=== PATIENT | female | born 1945 | race Hispanic/Latino ===

== ENCOUNTER 2016-04-25 14:30 | Emergency (ER) | payer MEDICARE ==
[2016-04-25] MEDS ORDERED: Lidocaine 1% 20 ML MDV ONE (15:05)
[2016-04-25] MEDS ORDERED: Sulfameth/Trimethoprim DS 800-160mg TAB ONE (15:22)
--- NOTE | 2016-04-25 15:45 | ERRECORD ---
[facility] EMERGENCY RECORD HPI ABSCESS (14:52 WMEI) CHIEF COMPLAINT: Patient presents for evaluation of swelling, Patient presents for evaluation of pain, Denies drainage from wound. HISTORIAN: History provided by patient. LOCATION: Symptoms are localized, most severe to forehead not aware of original injury noticed swelling for 4 days. QUALITY: Pain is dull in nature. TIME COURSE: Gradual onset of symptoms, 4, days priror to arrival. ASSOCIATED WITH: No associated chills, No associated fever. EXACERBATED BY: Patient's condition exacerbated by nothing. RELIEVED BY: Patient's condition relieved by nothing. ROS (14:53 WMEI) CONSTITUTIONAL: Historian denies chills, denies fever. EYES: Historian denies eye pain, denies eye discharge. ENT: Historian denies otalgia, denies sore throat. CARDIOVASCULAR: Historian denies chest pain, no radiation. RESPIRATORY: Historian denies cough, denies shortness of breath. GI: Historian denies abdominal pain, denies nausea, denies vomiting. GENITOURINARY FEMALE: Historian denies dysuria, denies frequency. MUSCULOSKELETAL: Historian denies injury, denies joint stiffness. SKIN: Historian reports cellulitis, reports skin changes. NEUROLOGIC: Historian denies confusion, denies lethargy, denies mental status changes. PSYCHIATRIC: Historian denies alcohol abuse, denies drug abuse. PAST MEDICAL HISTORY (14:39 LGIB) MEDICAL HISTORY: Flu vaccine up to date, Tetanus immunization up to date, Pneumococcal vaccine up to date, Past medical history includes history of diabetes, Type II, Past medical history includes history of hypertension, which has been treated, Past medical history includes musculoskeletal disorder, osteoporosis. vERIFIED 04/25/16. FEMALE SURGICAL HISTORY: kyphoplasty, gastric bypass, Surgical history of cholecystectomy, Surgical history of hysterectomy. VERIFIED 04/25/16. PSYCHIATRIC HISTORY: Psychiatric history includes, anxiety VERIFIED 04/25/16. SOCIAL HISTORY: Patient denies alcohol use, Patient denies drug use, Patient has no smoking history. VERIFIED 04/25/16. KNOWN ALLERGIES Ceclor: Reaction: Hives CeleBREX: - SWELLING codeine sulfate: Reaction: Rash NIFEdipine UltRAM: Reaction: Nausea &a-1R&a+25V*p+0X*[id number]*c202B*c15G*c2P*p-0X&a-25V&a+1R Name: Freddy Hazel : 1945 F70 MedRec: [id number] AcctNum: [id number] Prepared: Sat Apr 25, 2016 19:52 by Interface Page 1 of 3 pMD [facility] EMERGENCY RECORD CURRENT MEDICATIONS (14:41 LGIB) Invokana: TABLET : Strength - 100 mg : ORAL Patient Dose: 1 tab(s) Oral once a day. metFORMIN: TABLET : Strength - 1,000 mg : ORAL Patient Dose: 1 tab(s) Oral once a day. Coreg: TABLET : Strength - 12.5 mg : ORAL Patient Dose: 12.5 mg Oral 2 times a day. levothyroxine: TABLET : Strength - 100 mcg : ORAL Patient Dose: 175 mcg Oral once a day. Diovan: TABLET : Strength - 80 mg : ORAL Patient Dose: 320 mg Oral once a day. iron: TABLET : Strength - 325 mg (65 mg iron) : ORAL Patient Dose: Unknown. Requip: TABLET : Strength - 0.5 mg : ORAL Patient Dose: 0.1 mg Oral once a day. Hinckley: TABLET : Strength - 5 mg-325 mg : ORAL Patient Dose: 1 tab(s) Oral every 6 hours PRN. VITAL SIGNS VITAL SIGNS: Pulse: 98, Resp: 18 (Non-Labored), Temp: 98.5 (Oral), Pain: 6, O2 sat: 98 on Room Air, Time: 04/25/2016 14:38. (14:38 LGIB) BP: 197/104, Time: 04/25/2016 14:39. (14:39 LGIB) BP: 174/117, Pulse: 93, Resp: 18, Temp: 98.5 (Oral), Pain: 4, O2 sat: 97 on Room Air, Time: 04/25/2016 15:25. (15:25 AHOO) PHYSICAL EXAM (14:54 WMEI) CONSTITUTIONAL: Vital signs reviewed, Patient appears non toxic, Patient alert and oriented to person, place and time. HEAD: normocephalic, 4x4 cm area of erythema with small scab in the middle minimal fluctuance. EYES: Conjunctiva normal, Sclera normal. ENT: Ear exam normal, Nose exam normal, Pharynx exam normal. NECK: Neck exam included findings of normal range of motion, Trachea midline, Thyroid normal. RESPIRATORY CHEST: Breath sounds clear, Chest exam included findings of chest movement symmetrical. CARDIOVASCULAR: Cardiovascular exam included findings of heart rate regular rate and rhythm, Heart sounds normal. ABDOMEN FEMALE: Abdominal exam included findings of abdomen nontender, Liver normal, Spleen normal. &a-1R&a+25V*p+0X*x6694L*c202B*c15G*c2P*p-0X&a-25V&a+1R Name: Freddy Hazel : 1945 F70 MedRec: [id number] AcctNum: [id number] Prepared: Sat Apr 25, 2016 19:52 by Interface Page 2 of 3 pMD [facility] EMERGENCY RECORD UPPER EXTREMITY: Upper extremity exam included findings of inspection normal, Range of motion normal, Motor strength normal. LOWER EXTREMITY: Lower extremity exam included findings of inspection normal, Range of motion normal, Motor strength normal. NEURO: Angelika coma scale 15, Neuro exam findings include patient oriented to, Speech, Gait abnormal. SKIN: Skin exam included findings of skin warm, dry, and normal in color, 4x4 cm area of erythema with small scab in the middle minimal fluctuance. LYMPHATIC: Lymphatic exam normal. PSYCHIATRIC: Psychiatric exam included findings of patient oriented to person place and time, Normal affect, Judgment normal, Insight normal. MEDICATION ADMINISTRATION SUMMARY Drug Name: Bactrim DS, Dose Ordered: 1 tab(s), Route: Oral, Status: Given, Time: 15:25 04/25/2016, Drug Name: lidocaine (PF) injection, Dose Ordered: 10 mg, Route: Subcutaneous, Status: Given, Time: 15:17 04/25/2016, Detailed record available in Medication Service section. PROBLEM LIST No recorded problems DIAGNOSIS (15:22 WMEI) FINAL: PRIMARY: abscess. PRESCRIPTION (15:18 WMEI) Bactrim DS: TABLET : 800 mg-160 mg : ORAL : Quantity: 1 Unit: tab(s) Route: ORAL Schedule: 2 times a day (before meals) Dispense: 14 Unit: tab(s) May substitute. Refills: No Refills POTENTIAL SEVERE INTERACTION: Diovan Override Rationale: Patient tolerated similar in past, Reviewed with patient. NOTES: No refills. DISPOSITION PATIENT: Disposition Type: Discharge, Disposition: *Discharge Home. (15:22 WMEI) Patient left the department. (15:37 AHMEREDITH) Coy: AHOO=LENI Oro, June LGIB=GUERDA Israel Lauren WMEI=DO Gomez William &a-1R&a+25V*p+0X*[id number]*c202B*c15G*c2P*p-0X&a-25V&a+1R Name: Freddy Hazel : 1945 F70 MedRec: [id number] AcctNum: [id number] Prepared: Brown Apr 25, 2016 19:52 by Interface Page 3 of 3 pMD MTDD
--- NOTE | 2016-04-25 15:50 | PICIS ---
[facility] EMERGENCY RECORD TRIAGE ([facility] Apr 25, 2016 14:35 LGIB) TRIAGE NOTES: LAST WEDNESDAY NOTICED REDNESS AND THEN IT STARTED GETTING BIGGER. ([facility] Apr 25, 2016 14:35 LGIB) PATIENT: NAME: Freddy Hazel, AGE: 70, GENDER: female, : [facility] 1945, TIME OF GREET: Sat Apr 25, 2016 14:31, PREFERRED LANGUAGE: Tunisian, ETHNICITY: or , ECODE BILLING MAP: [facility], SSN: [id number], Zip Code: [address], KG WEIGHT: 66.68, PHONE: , , , PERSON ID: [id number], PAYMENT: [employer], PCP: MD Joy Kyle. ([facility] Apr 25, 2016 14:35 LGIB) COMPLAINT: ABSCESS. ([facility] Apr 25, 2016 14:35 LGIB) ADMISSION: URGENCY: 4 Non Urgent, ADMISSION SOURCE: Home, TRANSPORT: CAR, BED: TRIAGE. ([facility] Apr 25, 2016 14:35 LGIB) PROVIDERS: TRIAGE NURSE: Mariama Israel RN. ([facility] Apr 25, 2016 14:35 LGIB) PREVIOUS VISIT ALLERGIES: Ceclor, CeleBREX, codeine sulfate, UltRAM. ([facility] Apr 25, 2016 14:35 LGIB) Ceclor, CeleBREX, codeine sulfate, UltRAM. (14:39 LGIB) KNOWN ALLERGIES Ceclor: Reaction: Hives CeleBREX: - SWELLING codeine sulfate: Reaction: Rash NIFEdipine UltRAM: Reaction: Nausea CURRENT MEDICATIONS (14:41 LGIB) Invokana: TABLET : Strength - 100 mg : ORAL Patient Dose: 1 tab(s) Oral once a day. metFORMIN: TABLET : Strength - 1,000 mg : ORAL Patient Dose: 1 tab(s) Oral once a day. Coreg: TABLET : Strength - 12.5 mg : ORAL Patient Dose: 12.5 mg Oral 2 times a day. levothyroxine: TABLET : Strength - 100 mcg : ORAL Patient Dose: 175 mcg Oral once a day. Diovan: TABLET : Strength - 80 mg : ORAL Patient Dose: 320 mg Oral once a day. iron: TABLET : Strength - 325 mg (65 mg iron) : ORAL Patient Dose: Unknown. Requip: TABLET : Strength - 0.5 mg : ORAL Patient Dose: 0.1 mg Oral once a day. Catarina: &a-1R&a+25V*p+0X*n8758B*c202B*c15G*c2P*p-0X&a-25V&a+1R Name: Freddy Hazel : 1945 F70 MedRec: [id number] AcctNum: [id number] Prepared: Sat Apr 25, 2016 19:52 by Interface Page 1 of 6 pMD [facility] EMERGENCY RECORD TABLET : Strength - 5 mg-325 mg : ORAL Patient Dose: 1 tab(s) Oral every 6 hours PRN. VITAL SIGNS VITAL SIGNS: Pulse: 98, Resp: 18 (Non-Labored), Temp: 98.5 (Oral), Pain: 6, O2 sat: 98 on Room Air, Time: 04/25/2016 14:38. (14:38 LGIB) BP: 197/104, Time: 04/25/2016 14:39. (14:39 LGIB) BP: 174/117, Pulse: 93, Resp: 18, Temp: 98.5 (Oral), Pain: 4, O2 sat: 97 on Room Air, Time: 04/25/2016 15:25. (15:25 AHOO) NURSING ASSESSMENT: SKIN (14:45 LGIB) CONSTITUTIONAL: Complex assessment performed, Patient arrives ambulatory, Gait steady, History obtained from patient, Patient appears comfortable, Patient cooperative, Patient alert, Oriented to person, place and time, Skin warm, Skin dry, Skin normal in color, Mucous membranes pink, Mucous membranes moist, Patient is well-groomed, Patient complains of SKIN REDNESS, WARMTH. PAIN: tender pain, Onset of pain 04/13/2016, on a scale 0-10 patient rates pain as 6, Nothing has been tried to alleviate the pain. SKIN: Inspection findings include signs of infection, to CENTER OF FOREHEAD, RED, WARM, RAISED AREA TO CENTER OF FOREHEAD. RAISED AREA IS ABOUT 1.5CM ACROSS. NOT DRAINING ON IT'S OWN. NURSING PROCEDURE: DISCHARGE NOTE (15:29 AHOO) DISCHARGE: Patient discharged to home, ambulating without assistance, driving self, unaccompanied, Summary of Care printed/ provided, Transition record given to patient, Discharge instructions given to patient, Prescriptions given and instructions on side effects given, Above person(s) verbalized understanding of discharge instructions and follow-up care, Patient treated and evaluated by physician, Notes: MD WHITE WITH DISCHARGING PT WITH CURRENT BP, PT IS ASYMPTOMATIC, PROVIDED PT TEACHING REGARDING TAKING HER BP MEDS WHEN SHE GETS HOME. ORDER DETAILS Order Name: Culture & GS, Bacterial/Wound, Status: Active, Time: 15:16 04/25/2016, User: [employer], - Ordered for: DO Gomez William, - Entered by: DO Gomez William - Sat Apr 25, 2016 15:16, - Quantity: 1. MEDICATION ADMINISTRATION SUMMARY Drug Name: Bactrim DS, Dose Ordered: 1 tab(s), Route: Oral, Status: Given, Time: 15:25 04/25/2016, Drug Name: lidocaine (PF) injection, Dose Ordered: 10 mg, Route: &a-1R&a+25V*p+0X*e8420Z*c202B*c15G*c2P*p-0X&a-25V&a+1R Name: Ilir Edwinsoledad Knight : 1945 F70 MedRec: [id number] AcctNum: [id number] Prepared: Sat Apr 25, 2016 19:52 by Interface Page 2 of 6 pMD [facility] EMERGENCY RECORD Subcutaneous, Status: Given, Time: 15:17 04/25/2016, Detailed record available in Medication Service section. MEDICATION SERVICE Bactrim DS: Order: Bactrim DS (sulfamethoxazole/trimethoprim) - Dose: 1 tab(s) : Oral POTENTIAL SEVERE INTERACTION: Diovan - Patient tolerated similar in past Schedule: Now Ordered by: Jozef Gomez DO Entered by: Jozef Gomez DO Sat Apr 25, 2016 15:16 , Acknowledged by: Brianda Oro LVN Sat Apr 25, 2016 15:21 Documented as given by: Brianda Oro LVN Sat Apr 25, 2016 15:25 Patient, Medication, Dose, Route and Time verified prior to administration. Amount given: 1 TAB, Correct patient, time, route, dose and medication confirmed prior to administration, Patient advised of actions and side-effects prior to administration, Allergies confirmed and medications reviewed prior to administration, Patient in position of comfort, Side rails up, Cart in lowest position, Family at bedside. lidocaine (PF) injection: Order: lidocaine (PF) injection (lidocaine HCl/preservative free) - Dose: 10 mg : Subcutaneous Schedule: Now Ordered by: Jozef Gomez DO Entered by: Jozef Gomez DO Sat Apr 25, 2016 14:57 , Acknowledged by: Brianda Oro LVN Sat Apr 25, 2016 15:04 Documented as given by: Brianda Oro LVN Sat Apr 25, 2016 15:17 Patient, Medication, Dose, Route and Time verified prior to administration. Administered by DR GOMEZ. HPI ABSCESS (14:52 WMEI) CHIEF COMPLAINT: Patient presents for evaluation of swelling, Patient presents for evaluation of pain, Denies drainage from wound. HISTORIAN: History provided by patient. LOCATION: Symptoms are localized, most severe to forehead not aware of original injury noticed swelling for 4 days. QUALITY: Pain is dull in nature. TIME COURSE: Gradual onset of symptoms, 4, days priror to arrival. ASSOCIATED WITH: No associated chills, No associated fever. EXACERBATED BY: Patient's condition exacerbated by nothing. RELIEVED BY: Patient's condition relieved by nothing. ROS (14:53 WMEI) CONSTITUTIONAL: Historian denies chills, denies fever. EYES: Historian denies eye pain, denies eye discharge. ENT: Historian denies otalgia, denies sore throat. &a-1R&a+25V*p+0X*p7186R*c202B*c15G*c2P*p-0X&a-25V&a+1R Name: Freddy Hazel : 1945 F70 MedRec: [id number] AcctNum: [id number] Prepared: Sat Apr 25, 2016 19:52 by Interface Page 3 of 6 pMD [facility] EMERGENCY RECORD CARDIOVASCULAR: Historian denies chest pain, no radiation. RESPIRATORY: Historian denies cough, denies shortness of breath. GI: Historian denies abdominal pain, denies nausea, denies vomiting. GENITOURINARY FEMALE: Historian denies dysuria, denies frequency. MUSCULOSKELETAL: Historian denies injury, denies joint stiffness. SKIN: Historian reports cellulitis, reports skin changes. NEUROLOGIC: Historian denies confusion, denies lethargy, denies mental status changes. PSYCHIATRIC: Historian denies alcohol abuse, denies drug abuse. PAST MEDICAL HISTORY (14:39 LGIB) MEDICAL HISTORY: Flu vaccine up to date, Tetanus immunization up to date, Pneumococcal vaccine up to date, Past medical history includes history of diabetes, Type II, Past medical history includes history of hypertension, which has been treated, Past medical history includes musculoskeletal disorder, osteoporosis. vERIFIED 04/25/16. FEMALE SURGICAL HISTORY: kyphoplasty, gastric bypass, Surgical history of cholecystectomy, Surgical history of hysterectomy. VERIFIED 04/25/16. PSYCHIATRIC HISTORY: Psychiatric history includes, anxiety VERIFIED 04/25/16. SOCIAL HISTORY: Patient denies alcohol use, Patient denies drug use, Patient has no smoking history. VERIFIED 04/25/16. PHYSICAL EXAM (14:54 WMEI) CONSTITUTIONAL: Vital signs reviewed, Patient appears non toxic, Patient alert and oriented to person, place and time. HEAD: normocephalic, 4x4 cm area of erythema with small scab in the middle minimal fluctuance. EYES: Conjunctiva normal, Sclera normal. ENT: Ear exam normal, Nose exam normal, Pharynx exam normal. NECK: Neck exam included findings of normal range of motion, Trachea midline, Thyroid normal. RESPIRATORY CHEST: Breath sounds clear, Chest exam included findings of chest movement symmetrical. CARDIOVASCULAR: Cardiovascular exam included findings of heart rate regular rate and rhythm, Heart sounds normal. ABDOMEN FEMALE: Abdominal exam included findings of abdomen nontender, Liver normal, Spleen normal. UPPER EXTREMITY: Upper extremity exam included findings of inspection normal, Range of motion normal, Motor strength normal. LOWER EXTREMITY: Lower extremity exam included findings of inspection normal, Range of motion normal, Motor strength normal. NEURO: Angelika coma scale 15, Neuro exam findings include patient oriented to, Speech, Gait abnormal. SKIN: Skin exam included findings of skin warm, dry, and normal in color, 4x4 cm area of erythema with small scab in the middle &a-1R&a+25V*p+0X*b9250B*c202B*c15G*c2P*p-0X&a-25V&a+1R Name: Freddy Hazel : 1945 F70 MedRec: [id number] AcctNum: [id number] Prepared: Sat Apr 25, 2016 19:52 by Interface Page 4 of 6 pMD [facility] EMERGENCY RECORD minimal fluctuance. LYMPHATIC: Lymphatic exam normal. PSYCHIATRIC: Psychiatric exam included findings of patient oriented to person place and time, Normal affect, Judgment normal, Insight normal. EVENTS TRANSFER: Triage to Emergency Triage. (14:35 LGIB) Emergency Triage to Emergency Room -05. (14:41 LGIB) Removed from Emergency Emergency Room -05. (15:37 AHOO) INCISION AND DRAINAGE (15:15 WMEI) INCISION AND DRAINAGE: Side and/or site verified, Patient identification confirmed, Sterile procedures observed, Verbal consent obtained, Incision and drainage indicated for cutaneous abscess, Patient medicated prior to procedure, 1% Lidocaine without epinephrine used, 1 mL, Incision was made over area of fluctuance, Drained serosanguinous, Amount (mLs) 1, Tetanus status up to date, Patient tolerated the procedure well. PROBLEM LIST No recorded problems DIAGNOSIS (15:22 WMEI) FINAL: PRIMARY: abscess. DISPOSITION PATIENT: Disposition Type: Discharge, Disposition: *Discharge Home. (15:22 WMEI) Patient left the department. (15:37 AHOO) INSTRUCTION (15:22 WMEI) DISCHARGE: ABSCESS, I AND D. FOLLOWUP: MD Rufino, [facility], [address] [place] [address], . SPECIAL: Follow-up with your primary physician as needed. PRESCRIPTION (15:18 WMEI) Bactrim DS: TABLET : 800 mg-160 mg : ORAL : Quantity: 1 Unit: tab(s) Route: ORAL Schedule: 2 times a day (before meals) Dispense: 14 Unit: tab(s) May substitute. Refills: No Refills POTENTIAL SEVERE INTERACTION: Diovan Override Rationale: Patient tolerated similar in past, Reviewed with patient. NOTES: No refills. IMAGING *DISCHARGE INSTRUCTIONS RECEIPT: Image captured from scanner. (15:33 AHOO) &a-1R&a+25V*p+0X*j1343Q*c202B*c15G*c2P*p-0X&a-25V&a+1R Name: Freddy Hazel : 1945 F70 MedRec: [id number] AcctNum: [id number] Prepared: Sat Apr 25, 2016 19:52 by Interface Page 5 of 6 pMD [facility] EMERGENCY RECORD *SUPPLY CHARGE SHEET: Image captured from scanner. (15:34 AHOO) ADMIN (19:45 WMEI) DIGITAL SIGNATURE: DO Gomez William. Coy: AHOO=LENI OroJune LGIB=GUERDA Israel, Mariama WMEI=DO Gomez William &a-1R&a+25V*p+0X*t5260D*c202B*c15G*c2P*p-0X&a-25V&a+1R Name: Freddy Hazel : 1945 F70 MedRec: [id number] AcctNum: [id number] Prepared: Sat Apr 25, 2016 19:52 by Interface Page 6 of 6 pMD MTDD
== END 2016-04-25 15:29 | disposition home or self-care (01) ==
LOC: BURERS 14:30
DX: L02.811 Cutaneous abscess of head [any part, except face] (principal); I10 Essential (primary) hypertension; E11.9 Type 2 diabetes mellitus without complications; M81.0 Age-related osteoporosis without current pathological fracture; F41.9 Anxiety disorder, unspecified; Z79.84 Long term (current) use of oral hypoglycemic drugs; Z79.891 Long term (current) use of opiate analgesic; Z79.899 Other long term (current) drug therapy
CPT/HCPCS: 10060; 87070; 87077; 87186; 87205; J2001

== ENCOUNTER 2016-07-22 09:54 | Outpatient (CLI) | payer MEDICARE ==
[2016-07-22 10:43] LABS: ALT (SGPT) 11 U/L (0-55); AST (SGOT) 16 U/L (5-34); Alkaline Phosphatase 115 U/L (40-150); Anion Gap 12 mmol/L (10-20); BUN (Urea Nitrogen) 21 mg/dL (9.8-20.1); Bilirubin, Total 0.5 mg/dL (0.2-1.2); Calc. Creatinine Clearance 0 mL/min (70-130); Carbon Dioxide 27 mmol/L (23-31); Cardiac Risk 2.5 (Less than 4.5); Chloride 105 mmol/L (98-107); Cholesterol 185 mg/dL (< 200 Desired); Estimated GFR-MDRD 64; Globulin 2.7 g/dL (2.4-3.5); Glucose 118 mg/dL (80-115); HDL Cholesterol 75 mg/dL (>60 Neg Risk); LDL Cholesterol, Calculated 84 mg/dL; Potassium 4.3 mmol/L (3.5-5.1); Protein, Total 6.7 g/dL (5.8-8.1); Sodium 140 mmol/L (136-145); Triglycerides 128 mg/dL (Less than 150)
[2016-07-22 10:53] LABS: #Basophils 0.1 thou/uL (0.0-0.2); #Monocytes 0.5 thou/uL (0.11-0.59); #Neutrophils 4.5 thou/uL (1.40-6.50); %Basophils 0.9 % (0.0-1.0); %Eosinophils 0.8 % (0.0-10.0); %Lymphocytes 15.9 % (21.0-51.0); %Monocytes 7.6 % (0.0-10.0); %Neutrophils 74.9 % (42.0-75.0); Hemoglobin 12.5 g/dL (12.0-16.0); Mean Corpuscular Volume 99.9 fl (81.0-99.0); Mean Platelet Volume 7.1 fL (7.4-10.4); Platelet Count 170 thou/uL (130-400); RBC Distribution Width 13.1 % (11.5-14.5); Red Blood Cell (RBC) Count 3.91 mill/uL (4.20-5.40)
[2016-07-22 11:03] LABS: Free T4 (Free Thyroxine) 1.32 ng/dL (0.70-1.48); Thyroid Stimulating Hormone 0.304 uIU/mL (0.35-4.94)
[2016-07-22 11:26] LABS: Hemoglobin A1c 5.6 % (4.0-6.0)
== END 2016-07-22 09:55 | disposition home or self-care (01) ==
LOC: HPCALD 09:54
PROVIDERS: ATTEND Family Medicine
DX: E11.9 Type 2 diabetes mellitus without complications (principal); I10 Essential (primary) hypertension; E03.9 Hypothyroidism, unspecified
CPT/HCPCS: 36415; 80053; 80061; 83036; 84439; 84443; 85025